=== PATIENT | female | born 1995 | race Caucasian/White ===

== ENCOUNTER 2016-11-11 16:23 | Emergency (ER) | payer MEDICARE | END 2016-11-11 17:38 | disposition home or self-care (01) | LOC: ER 16:23 | DX: S00.86XA Insect bite (nonvenomous) of other part of head, initial encounter (principal); L03.211 Cellulitis of face; W57.XXXA Bitten or stung by nonvenomous insect and other nonvenomous arthropods, initial encounter | CPT/HCPCS: 87070; 87186; 99283 ==

== ENCOUNTER 2016-11-12 17:23 | Emergency (ER) | payer MEDICARE | END 2016-11-12 22:05 | disposition home or self-care (01) | LOC: ER 17:23 | DX: L02.01 Cutaneous abscess of face (principal); L73.9 Follicular disorder, unspecified; S00.86XA Insect bite (nonvenomous) of other part of head, initial encounter; W57.XXXA Bitten or stung by nonvenomous insect and other nonvenomous arthropods, initial encounter | CPT/HCPCS: 96372; 99282-25 ==